=== PATIENT | male | born 1945 | race Caucasian/White ===

== ENCOUNTER 2016-12-20 10:15 | Observation (INO) | payer MEDICARE, OTHER ==
[2016-12-20 10:54] LABS: Hematocrit 44.8 % (42.0-52.0); Hemoglobin 15.1 gm/dL (13.5-18.0); Mean Cell Volume 94.3 fl (78-100); Mean Corpuscular Hemoglobin 31.8 pg (27-31); Mean Corpuscular Hgb Conc 33.7 g/dl (32-36); Mean Platelet Volume 9.4 fl (6.0-9.5); Neutrophil # 7.8 K/mm3 (1.3-6.0); Neutrophil % 81.7 % (42-75.0); Platelet Count 181 K/mm3 (150-450); Red Blood Count 4.75 M/mm3 (4.7-6.0); White Blood Count 9.5 K/mm3 (4.0-10.5)
[2016-12-20 11:14] LABS: Troponin I 0.02 ng/ml (0.00-0.10)
[2016-12-20 11:18] LABS: Anion Gap 10.7 mmol/L (6.8-13.8); BUN/Creatinine Ratio 17.2 (9.0-21.6); CKMB 1.8 ng/mL (0.0-9.0); Calcium * 8.5 mg/dL (7.9-10.9); Carbon Dioxide 31.7 mmol/L (24-32.6); Estimated Creat Clear 61.4; Potassium 4.4 mmol/L (3.4-4.6)
[2016-12-20 11:32] LABS: Prothrombin Time (Patient) 25.5 Seconds (9.4-11.4)
[2016-12-20 11:33] LABS: INR 2.45 INR (0.90-1.10)
[2016-12-20] MEDS ORDERED: NITROGLYCERIN 0.4 MG/TAB BTL SL ONE ×2 (11:35→11:57)
[2016-12-20] MEDS ORDERED: ASPIRIN 81 MG TAB.CHEW PO ONE (11:35)
[2016-12-20] MEDS ORDERED: ASPIRIN 81 MG TAB.CHEW ONE (11:35)
--- NOTE | 2016-12-20 11:42 | ERNOTE ---
Syncope ER HPI Stated Complaint: SYNCOPAL Time Seen by Provider: 12/20/16 11:22 Source: patient Exam Limitations: no limitations Immunizations: IMMUNIZATION HX Immunizations Up to Date Yes History of Influenza Vaccine Yes Hx Pneumococcal Vaccination Yes Allergies/Adverse Reactions: Allergies No Known Allergies Allergy (Unverified 12/20/16 10:36) Home Medications: HOME MEDICATIONS Amiodarone HCl [Pacerone] 200 mg PO DAILY 09/11/12 [Last Taken Unknown] Carvedilol [Coreg] 6.25 mg PO BID 09/11/12 [Last Taken Unknown] Furosemide [Lasix] 20 mg PO DAILY 09/11/12 [Last Taken Unknown] Levothyroxine Sodium [Tirosint] 50 mcg PO DAILY 11/27/12 [Last Taken Unknown] Losartan Potassium [Cozaar] 25 mg PO DAILY 06/18/14 [Last Taken Unknown] Warfarin Sodium [Coumadin] 5 mg PO SUMOWETHSA 06/18/14 [Last Taken Unknown] Warfarin Sodium [Coumadin] 2.5 mg PO TUFR 05/03/16 [Last Taken Unknown] - History of Present Illness Narrative: Patient was at work, when to urinate and when he bend down to wipe the urinal he started to feel lightheaded and then woke up on the floor. A coworker heard him fall, they don't think that he was unconscious for more than a couple of minutes. He never passed out before, has a history of afib and CHF, no history of CAD. He denies any injuries or significant pain except slight central chest pressure (2-3/10) Date (Duration): 12/20/16 Time (Timing): 09:30 Prior Episodes: Present: no prior history, single episode today Review of Systems - Review of Systems Constitutional: Absent: recent illness, fever EYE: Absent: blurred vision, double vision ENT: Absent: nose congestion, nasal drainage, sore throat Respiratory: Absent: shortness of breath, cough Cardiology: Present: See HPI, chest pain, syncope. Absent: palpitations Gastrointestinal/Abdominal: Absent: nausea, vomiting, diarrhea, abdominal pain Genitourinary: Present: no symptoms reported Musculoskeletal: Present: no symptoms reported Skin: Present: no symptoms reported Neurological: Absent: headache, weakness, numbness, pre-existing deficit - Patient's Past Medical History Patient History - Medical: Hypothyroidism Patient History - Cardiac/Respiratory: Atrial Fibrillation - patient is not sure whether intermittent or chronic, Deep Vein Thrombosis, Hypertension, Pneumonia Patient History - Cancer: No Hx of Cancer Patient History - Surgical Procedures: Cholecystectomy Patient History - Other: None - Social History Living Situations: home Abuse History: No History of abuse Psych History: No pertinent hx Smoking Status: Current every day smoker Alcohol Use: none Drug Use: none - Immunizations Immunizations Up to Date: Yes Hx Pneumococcal Vaccination: Yes History of Influenza Vaccine: Yes Physical Exam - Physical Exam General Appearance: Present: wd/wn, alert, no apparent distress Eye Exam: Normal inspection: bilateral, PERRL: bilateral, EOMI: bilateral Ears, Nose, Throat: Present: normal ENT inspection, normal pharynx Neck: Present: normal inspection, nontender, other - chronic decrased ROM Respiratory: Present: no respiratory distress, no accessory muscle use, decreased breath sounds, expiration (prolonged), wheezing - few Cardiovascular/Chest: Present: regular rate, rhythm, no murmur Gastrointestinal/Abdominal: Present: normal bowel sounds, nontender, nondistended, soft Extremity Exam: Present: pedal edema Neurological Exam: Present: alert, oriented, normal mood/affect, no motor/ sensory deficits, 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 - Vital Signs Patient's Vital Signs:: I have reviewed the patient's vital signs. Vital Signs: Vital Signs 12/20/16 12/20/16 10:31 10:55 Temperature 36.6 C Pulse Rate 64 60 Respiratory 12 21 H Rate Blood Pressure 146/65 139/61 O2 Sat by Pulse 99 98 Oximetry - EKG EKG: NSR - sinusbrady, RBBB - incomplete, unchanged from 08/2012 EKG read: Interp. by me - X-Ray X-Ray #1 X-Ray: chest - hyperinflated, no acute changes Interpretation: Reviewed by me - Progress/Reassessment Chief Complaint: Syncopal Episode Progress Note-Subjective: 12/20/16 11:54 some pain relieve with nitro (from 3-4 to 2/10) explained test results 12/20/16 12:35 complete pain relieve with second nitro, explained test results and recommended admission, patient agreed 12/20/16 12:35 discussed with aleksandar Mariee to admit for observation Departure Clinical Impression: Chest pain Qualifiers: Chest pain type: precordial pain Qualified Code(s): R07.2 - Precordial pain Syncope Qualifiers: Syncope type: unspecified Qualified Code(s): R55 - Syncope and collapse - Departure Disposition: [facility] Condition: Good Referrals: Mya Ta MD [Primary Care Provider] -
--- OUTSIDE RECORDS SUMMARY | 2016-12-20 12:03 | XMS REPORT | Continuity of Care Document ---
:1945 Author Organization [facility] ([facility]) Address [address] [place] [address] Phone [phone] Care Team Providers Name Role Phone Mya Ta Primary Care Provider [phone] Source Comments This disclosure is being made pursuant to the Care Everywhere program, applicable federal and state laws, and may not contain all informaitonavailable regarding this patient.[facility] ([facility]) Active Allergies and Adverse Reactions No Known Allergies Current Medications Prescription Sig. Disp. Refills Start Date End Date Status furosemide 20 mg tablet Take 20 mg by 09/23/2013 Active mouth daily losartan 25 mg tablet Take 25 mg by 06/06/2014 Active mouth daily warfarin (COUMADIN) 5 take 1/2 tablet 09/01/2012 Active mg tablet Friday and Friday. Take one pill all other days, or as directed. amiodarone 200 mg Take 1 tablet 90 tablet 0 07/03/2016 Active tablet (200 mg total) by mouth daily. levothyroxine 50 mcg Take 50 mcg by 6 06/24/2016 Active tablet mouth daily. carvedilol 25 mg tablet Take 1 tablet 180 tablet 4 10/01/2016 Active (25 mg total) by mouth 2 times daily. Active Problems Problem Noted Date Aneurysm of thoracic aorta Overview: CTA [place]: 4.2 cm. 05/2014 CTA [place] 4.5cm 06/2015 Cardiomyopathy, secondary Overview: Formatting of this note may be different from the original. CARDIOVASCULAR PROCEDURES ECHO/MUGA: Echo (EF 0.15, Mild MR, Mild TR) - 08/18/2012 Echo (EF 0.40, Mild MR, Mild AR) - 11/19/2012 Echo (EF 0.55 (55%), Mild AR, Mild MR, dilated TAA) - 04/07/2014 Atrial fibrillation Alcohol abuse DVT (deep venous thrombosis) PVD (peripheral vascular disease) Tobacco abuse Abdominal aortic aneurysm Overview: CTA [place] 4.5 x4.6cm 06/2015 Most Recent Encounters Date Type Specialty Providers Description 10/01/2016 Refill Cardiac Rehabilitation Gemini Garcia MD Dx: Essential hypertension, benign (Primary Dx) Social History Tobacco Use Types Packs/Day Years Used Date Current Every Day Smoker Cigarettes 0.25 Tobacco Cessation:Ready to Quit: No; Counseling Given: Yes Comments: Alcohol Use Drinks/Week oz/Week Comments Yes Last Filed Vital Signs Vital Sign Reading Time Taken Blood Pressure 150/84 08/06/2016 10:50 AM MANAGER WINTER Pulse 58 08/06/2016 10:50 AM MANAGER WINTER Temperature - - Respiratory Rate - - Height 1.88 m (6' 2") 08/06/2016 10:50 AM MANAGER WINTER Weight 87.544 kg (193 lb) 08/06/2016 10:50 AM MANAGER WINTER Body Mass Index 24.77 08/06/2016 10:50 AM MANAGER WINTER Oxygen Saturation - - Plan of Care Date Type Specialty Providers Description 12/25/2016 Hospital Encounter Radiology Dx: Pre-procedure lab exam (Primary Dx) 12/25/2016 Appointment Vascular Surgery Gayle Rubio, 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 Reason For [address] [place] [address] [phone] (Fax) 01/28/2017 Appointment Heart and Vascular Default, Other Billg - [facility] [address] [place] [address] [phone] (Fax) Chief Comp: Patient Gemini Garcia MD [address] [place] [address] [phone] (Fax) Reported Reason For Visit Health Maintenance Due Date Last Done Comments Hepatitis B Vaccine (1 of 3 - Primary Series) 1945 Tdap Vaccine 1954 Lipid Disorder Screening 1961 Td Vaccine 1961 Colonoscopy 08/19/1993 Prostate Cancer Screening 1993 Zoster Vaccine 2003 Pneumococcal Vaccine (1 of 2 - PCV13) 2008 Influenza Vaccine: Seasonal Completed Results from Last 3 Months Not on file
[2016-12-20] MEDS ORDERED: ATORVASTATIN CALCIUM 40 MG TABLET PO STA (12:44)
--- OUTSIDE RECORDS SUMMARY | 2016-12-20 12:46 | XMS REPORT | Continuity of Care Document ---
:1945 Author Organization [facility] ([facility]) Address [address] [place] [address] Phone [phone] Care Team Providers Name Role Phone Mya Ta Primary Care Provider [phone] Source Comments This disclosure is being made pursuant to the Care Everywhere program, applicable federal and state laws, and may not contain all informaitonavailable regarding this patient.[facility] ([facility]) Active Allergies and Adverse Reactions No [...] Taken Blood Pressure 150/84 08/06/2016 10:50 AM FAN ENGINE ENGINEER Pulse 58 08/06/2016 10:50 AM FAN ENGINE ENGINEER Temperature - - Respiratory Rate - - Height 1.88 m (6' 2") 08/06/2016 10:50 AM FAN ENGINE ENGINEER Weight 87.544 kg (193 lb) 08/06/2016 10:50 AM FAN ENGINE ENGINEER Body Mass Index 24.77 08/06/2016 10:50 AM FAN ENGINE ENGINEER Oxygen Saturation - - Plan of Care Date Type Specialty Providers Description 12/25/2016 Hospital Encounter Radiology Dx: Pre-procedure lab exam (Primary Dx) 12/25/2016 Appointment Vascular Surgery Gayle Rubio, 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
[2016-12-20] MEDS ORDERED: NITROGLYCERIN 0.4 MG/TAB BTL SL PRN (13:53)
[2016-12-20] MEDS ORDERED: ROSUVASTATIN CALCIUM 10 MG TABLET PO ONE (13:59)
[2016-12-20] MEDS: LEVOTHYROXINE SODIUM 50 MCG TABLET PO SCH (14:48)
[2016-12-20] MEDS ORDERED: WARFARIN SODIUM 2.5 MG TABLET PO SCH (17:00)
[2016-12-20 17:26] LABS: Urine Bilirubin 1 mg/dl (NEGATIVE); Urine Blood 250 /ul (NEGATIVE); Urine Ketone Negative (NEGATIVE); Urine Nitrite Negative (NEGATIVE); Urine Protein 15 mg/dL (NEGATIVE); Urine Specific Gravity >=1.030 SP.GR. (1.005-1.030); Urine Urobilinogen Normal (NORMAL); Urine pH 5.5 pH (5.0-7.0)
[2016-12-20 17:42] LABS: Urine Appearance Slightly Cloudy; Urine Color Amber
[2016-12-20 17:43] LABS: Urine Bacteria 1+; Urine Coarse Granular Cast 0-5 /LPF; Urine Mucus Moderate - 2+; Urine RBC 25-50 /hpf (0-5)
[2016-12-20 18:57] LABS: Hemoglobin 14.2 gm/dL (13.5-18.0)
--- NOTE | 2016-12-20 19:48 | HP ---
Chief Complaint - Chief Complaint Date of Service: 12/20/16 Time of Service: 15:40 Chief Complaint: chest pain, syncope History of Present Illness: Axel is a 71 year old male patient of Dr Ta with a PMH of atrial fibrillation (currently in SR on amiodarone), dilated cardiomyopathy (ef 55%), history of DVT left leg on coumadin, ascending thoracic aneurysm, AAA, hypothyoridism, HTN, PVD who presented to the emergency room with chest pain after a syncopal episode at work. 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 denies any dizziness, nausea or sweating prior his syncopal episode. patient indicates that after passing out he hit his shoulder and not any part of his head. at this point he developed chest pain, that he describes as a pressure in the middle of his chest, and presented to the er. In the ER, chest pain was relieved with 2 sl ntg. pt denies any radiation of the chest pain. denies any abdominal pain. denies any back pain or n/v. patient indicates he has been eating and drinking well the past week and has not had any URI symptoms for over a month. EKG in the er was non acute. chest xray was non acute. neutrophils were elevated in the ER with normal wbc so UA pending. troponin 0.020. INR therapeutic at 2.45. pt was admitted to the hospital for chest pain rule out MS. Patient see cardiology at [facility]. Last CTA of the chest showed thoracic aneurysm at 5.5 cm and AAA at 5.3 x 3.7 cm with recommendations to follow up with CTA in 6 months (done 07/25/2016). History of chronic afib, currently in SR with amiodarone - pt states that he does not know when he is in afib. - Patient's Past Medical History Patient History - Medical: Hypothyroidism Patient History - Cardiac/Respiratory: Atrial Fibrillation, Deep Vein Thrombosis , Hypertension Patient History - Cancer: No Hx of Cancer Patient History - Surgical Procedures: Cholecystectomy Patient History - Other: None - Family History Father Family History - Medical: Family History - Cardiac/Respiratory: No pertinent hx Family History - Cancer: No pertinent family hx Mother Family History - Medical: Family History - Cardiac/Respiratory: No pertinent hx Family History - Cancer: No pertinent family hx - Social History Living Situations: spouse Abuse History: No History of abuse Psych History: No pertinent hx Smoking Status: Current every day smoker Have you smoked in the past 12 months: Yes Do you dip or chew tobacco: No Patient requests Smoking Cessation Consult: No Initiate information on Smoking Cessation: No Alcohol Use: none Drug Use: none - Immunizations Immunizations Up to Date: Yes Hx Pneumococcal Vaccination: Yes History of Influenza Vaccine: Yes Review Of Systems (GEN) - Review of Systems Generalized/Overall Review: Present: No Symptoms Reported EENTM: Present: No Symptoms Reported Respiratory: Present: Cough - states pt has chronic cough - no change in cough. Absent: Shortness of Breath, Orthopnea, Wheezing Cardiac: Present: Chest Pain, Edema, Syncope. Absent: Palpitations Abdominal: Present: No Symptoms Reported Genitourinary: Present: No Symptoms Reported Musculoskeletal: Present: No Symptoms Reported Neurological: Present: No Symptoms Reported Skin: Present: No Symptoms Reported Endocrine: Present: No Symptoms Reported Misc: All systems neg except as marked Immunizations: IMMUNIZATION HX Immunizations Up to Date Yes History of Influenza Vaccine Yes Hx Pneumococcal Vaccination Yes Allergies/Adverse Reactions: Allergies Allergy/AdvReac Type Severity Reaction Status Date / Time JOHNNY Inhibitors Allergy Intermediate Verified 12/20/16 13:39 lisinopril Allergy Intermediate Verified 12/20/16 13:39 Home Medications: HOME MEDICATIONS Amiodarone HCl [Pacerone] 200 mg PO DAILY 09/11/12 [Last Taken Unknown] Carvedilol [Coreg] 6.25 mg PO DAILY 09/11/12 [Last Taken Unknown] Furosemide [Lasix] 20 mg PO DAILY 09/11/12 [Last Taken Unknown] Levothyroxine Sodium [Tirosint] 50 mcg PO DAILY 11/27/12 [Last Taken Unknown] Losartan Potassium [Cozaar] 25 mg PO BID 06/18/14 [Last Taken Unknown] Warfarin Sodium [Coumadin] 5 mg PO MOWETHSA 06/18/14 [Last Taken Unknown] Warfarin Sodium [Coumadin] 2.5 mg PO SUTUFR 05/03/16 [Last Taken Unknown] Exam - Exam Vital Signs: Vital Signs - Last Taken Temp 35.9 C L 12/20/16 13:24 Pulse 71 12/20/16 13:24 Resp 16 12/20/16 13:24 BP 78/50 12/20/16 13:24 Pulse Ox 100 12/20/16 13:24 Constitutional: Present: Alert, Oriented x3, Cooperative, No distress, Elderly ENT Exam: Present: hearing grossly normal Eye Exam: bilateral eye: normal inspection Neck: Present: full range of motion, supple Back Exam: Present: normal inspection, no vertebral tenderness Breasts: Present: Exam deferred Respiratory: Present: chest non-tender, lungs clear, normal breath sounds, no respiratory distress, no accessory muscle use Cardiovascular/Chest: Present: normal peripheral pulses, regular rate, rhythm, no chest tenderness, no JVD, edema - +2 left lower leg edema, trace right lower leg edema - indicates left leg swells during the day but return to normal by morning. Peripheral Pulses: dorsalis-pedis (R): 2+, dorsalis-pedis (L): 2+, radial (R): 2 +, radial (L): 2+ Abdomen: Present: Normal bowel sounds, soft, nontender, nondistended, no rebound tenderness /Rectal: Present: Exam deferred Extremity: Present: non-tender, no calf tenderness, lower extremity edema - +2 edema left leg, trace edema right leg, swelling - left leg. Absent: inflammation Skin Exam: Present: warm/dry, no cyanosis, pallor Neurologic: Present: alert, oriented x 3 Diagnostic Studies: Abnormal Lab Results 12/20/16 12/20/16 12/20/16 Range/Units 17:20 18:44 18:44 Hct 41.0 L (42.0-52.0) % Troponin I 0.106 H (0.00-0.10) ng/ml Urine Protein 15 H (NEGATIVE) mg/dL Urine Blood 250 H (NEGATIVE) /ul Urine Bilirubin 1 H (NEGATIVE) mg/dl Ur Leukocyte Esterase 75 H (NEGATIVE) /ul Urine RBC 25-50 H (0-5) /hpf Urine WBC 5-10 H (0-5) /hpf Ur Epithelial Cells 5-10 H (0-5) /hpf Urine Bacteria 1+ H (NONE) Hyaline Casts 5-10 H (NONE) /LPF Coarse Granular Casts 0-5 H (NONE) /LPF Urine Mucus Moderate - 2+ H (NONE) Laboratory Results WBC 9.5 K/mm3 (4.0-10.5) 12/20/16 10:53 RBC 4.75 M/mm3 (4.7-6.0) 12/20/16 10:53 Hgb 14.2 gm/dL (13.5-18.0) 12/20/16 18:44 Hct 41.0 % (42.0-52.0) L 12/20/16 18:44 MCV 94.3 fl (78-100) 12/20/16 10:53 MCH 31.8 pg (27-31) H 12/20/16 10:53 MCHC 33.7 g/dl (32-36) 12/20/16 10:53 RDW 14.0 % (11.5-14.0) 12/20/16 10:53 Plt Count 181 K/mm3 (150-450) 12/20/16 10:53 MPV 9.4 fl (6.0-9.5) 12/20/16 10:53 Immature Gran % (Auto) 0.50 % (0.001-0.429) H 12/20/16 10:53 Immature Gran # (Auto) 0.05 K/mm3 (0.000-0.0310) H 12/20/16 10:53 Neutrophils % 81.7 % (42-75.0) H 12/20/16 10:53 Lymphocytes % 7.5 % (20-51) L 12/20/16 10:53 Monocytes % 8.6 % (0.0-9) 12/20/16 10:53 Eosinophils % 1.3 % (0.0-3.0) 12/20/16 10:53 Basophils % 0.4 % (0.0-1.0) 12/20/16 10:53 Nucleated RBC % 0.0 k/mm3 (0-1) 12/20/16 10:53 Neutrophils # 7.8 K/mm3 (1.3-6.0) H 12/20/16 10:53 Lymphocytes # 0.7 k/mm3 (1.5-3.5) L 12/20/16 10:53 Monocytes # 0.8 k/mm3 (0.0-1.0) 12/20/16 10:53 Eosinophils # 0.1 k/mm3 (0.0-0.7) 12/20/16 10:53 Absolute Basophils 0.0 k/mm3 (0.0-0.1) 12/20/16 10:53 PT 25.5 Seconds (9.4-11.4) H 12/20/16 10:15 INR (Anticoag Therapy) 2.45 INR (0.90-1.10) H 12/20/16 10:15 Sodium 142 mmol/L (132-142) 12/20/16 10:53 Plasma Sodium 142 mmol/L (130-142) 12/20/16 10:53 Potassium 4.4 mmol/L (3.4-4.6) 12/20/16 10:53 Chloride 104 mmol/L (97-106) 12/20/16 10:53 Carbon Dioxide 31.7 mmol/L (24-32.6) 12/20/16 10:53 Anion Gap 10.7 mmol/L (6.8-13.8) 12/20/16 10:53 BUN 22 mg/dL (6-23) 12/20/16 10:53 Creatinine 1.28 mg/dL (0.4-1.4) 12/20/16 10:53 Est GFR (Non-Af Amer) 59 mL/min (60-130) L 12/20/16 10:53 BUN/Creatinine Ratio 17.2 (9.0-21.6) 12/20/16 10:53 Random Glucose 118 mg/dL (70-110) H 12/20/16 10:53 Calcium 8.5 mg/dL (7.9-10.9) 12/20/16 10:53 Creatine Kinase 126 U/L (0-259) 12/20/16 10:53 CK-MB (CK-2) 1.8 ng/mL (0.0-9.0) 12/20/16 10:53 CK-MB (CK-2) Rel Index 1.4 (0.0-3.6) 12/20/16 10:53 Troponin I 0.106 ng/ml (0.00-0.10) H 12/20/16 18:44 Urine Color Guerline 12/20/16 17:20 Urine Appearance Slightly cloudy 12/20/16 17:20 Urine pH 5.5 pH (5.0-7.0) 12/20/16 17:20 Ur Specific [place] >=1.030 SP.GR. (1.005-1.030) 12/20/16 17:20 Urine Protein 15 mg/dL (NEGATIVE) H 12/20/16 17:20 Urine Glucose (UA) Negative mg/dL (NEGATIVE) 12/20/16 17:20 Urine Ketones Negative mg/dL (NEGATIVE) 12/20/16 17:20 Urine Blood 250 /ul (NEGATIVE) H 12/20/16 17:20 Urine Nitrate Negative (NEGATIVE) 12/20/16 17:20 Urine Bilirubin 1 mg/dl (NEGATIVE) H 12/20/16 17:20 Urine Ictotest Negative (NEGATIVE) 12/20/16 17:20 Prot Sulfosalicylic Acd Negative mg/dL (0) 12/20/16 17:20 Urine Urobilinogen Normal EU/dl (NORMAL) 12/20/16 17:20 Ur Leukocyte Esterase 75 /ul (NEGATIVE) H 12/20/16 17:20 Urine RBC 25-50 /hpf (0-5) H 12/20/16 17:20 Urine WBC 5-10 /hpf (0-5) H 12/20/16 17:20 Ur Epithelial Cells 5-10 /hpf (0-5) H 12/20/16 17:20 Urine Bacteria 1+ (NONE) H 12/20/16 17:20 Hyaline Casts 5-10 /LPF (NONE) H 12/20/16 17:20 Coarse Granular Casts 0-5 /LPF (NONE) H 12/20/16 17:20 Urine Mucus Moderate - 2+ (NONE) H 12/20/16 17:20 Urine Culture Comments Culture to follow 12/20/16 17:20 Assessment/Plan - Narrative Narrative: 71 year old male admitted with chest pain and syncopal episode. Chest pain rule out MS - serial troponins with ekg. - check labs in the am. - has been chest pain free since the 2 sl ntg in the er. - sl ntg prn. - cont tele, cont O2 monitoring. - already on a beta-ene. atrial fib - currently in sr, on amiodarone. - on chronic coumadin due to dvt hx left leg. - inr therapeutic on admission - monitor on cont tele. thoracic and abdominal aneurysms - currently being monitored by cardiology at [facility]. - last CTA showed size to be over 5 cm for both - possible that cp can be coming from dissection or leaking of either aneurysms - pt does not have classic tearing chest pain, back pain or abdominal symptoms. if pt develops chest pain overnight or if clinic picture changes overnight, will need to obtain a cta of the chest and abdomen. history of dvt - on chronic coumadin - inr therapeutic - monitor daily inr's while admitted. post thrombotic syndrome of the left lower extremity - significant difference in swelling of left lower extremity when compared to right but this resolves in the morning - likely due to history of dvt and post thrombotic syndrome. syncope - unknown cause. vasal vagal unlikely as pt did not have dizziness, n/v, or diaphoresis prior to episode. will monitor closely. pt denies hitting his head and states that he hit his shoulder. neuro exam unremarkable but if clinical picture changes he will need a ct of the head. - syncope also possibly due to MS vs sequela of changing aneurysms (ie dissections vs leakage) - monitor troponins and hgb/hct. monitor ekg. if pt develops chest pain or if clinical picture changes, pt will need cta of chest and abdomen to assess aneurysms. Code status - Full Code GI Proph - protonix VTE - already therapeutic on coumadin. - Assessment/Plan (1) Chest pain, rule out acute myocardial infarction Problem: Acute (2) Atrial fibrillation Problem: Chronic Qualifiers: Atrial fibrillation type: chronic Qualified Code(s): I48.2 - Chronic atrial fibrillation (3) Thoracic ascending aortic aneurysm Problem: Chronic (4) Abdominal aortic aneurysm Problem: Chronic Qualifiers: Presence of rupture: without rupture Qualified Code(s): I71.4 - Abdominal aortic aneurysm, without rupture (5) HTN (hypertension) Problem: Chronic Qualifiers: Hypertension type: essential hypertension Qualified Code(s): I10 - Essential (primary) hypertension (6) History of DVT (deep vein thrombosis) Problem: Chronic (7) 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
[2016-12-20] MEDS: LOSARTAN POTASSIUM 50 MG TABLET PO SCH (20:52)
[2016-12-21 05:01] LABS: Hematocrit 38.3 % (42.0-52.0); Mean Cell Volume 92.7 fl (78-100); Mean Corpuscular Hemoglobin 31.5 pg (27-31); Mean Corpuscular Hgb Conc 33.9 g/dl (32-36); Mean Platelet Volume 9.7 fl (6.0-9.5); Neutrophil # 13.3 K/mm3 (1.3-6.0); Neutrophil % 85.3 % (42-75.0); Platelet Count 161 K/mm3 (150-450); Red Blood Count 4.13 M/mm3 (4.7-6.0); White Blood Count 15.5 K/mm3 (4.0-10.5)
[2016-12-21 05:09] LABS: Prothrombin Time (Patient) 29.8 Seconds (9.4-11.4)
[2016-12-21 05:11] LABS: INR 2.87 INR (0.90-1.10)
[2016-12-21 05:25] LABS: Anion Gap 11.7 mmol/L (6.8-13.8); BUN/Creatinine Ratio 19.6 (9.0-21.6); Calcium * 8.1 mg/dL (7.9-10.9); Carbon Dioxide 27.9 mmol/L (24-32.6); Estimated Creat Clear 71.5; Potassium 3.6 mmol/L (3.4-4.6)
[2016-12-21 05:27] LABS: Troponin I 0.152 ng/ml (0.00-0.10)
[2016-12-21] MEDS ORDERED: NORMAL SALINE 500 ML IV PRN (06:15)
[2016-12-21] MEDS: LEVOTHYROXINE SODIUM 50 MCG TABLET PO SCH (06:33)
[2016-12-21] MEDS ORDERED: LEVOTHYROXINE SODIUM 50 MCG TABLET PO SCH (07:00)
[2016-12-21] MEDS ORDERED: NORMAL SALINE 500 ML IV ONE (07:48)
[2016-12-21] MEDS ORDERED: PANTOPRAZOLE SODIUM 40 MG in NORMAL SALINE 100 ML IV SCH (08:15)
[2016-12-21] MEDS ORDERED: NOREPINEPHRINE BITARTRATE 4 MG in DEXTROSE 5 % IN WATER 496 ML IV PRN ×2 (08:43)
[2016-12-21] MEDS ORDERED: CARVEDILOL 6.25 MG TABLET PO SCH (09:00)
[2016-12-21] MEDS ORDERED: FUROSEMIDE 40 MG TABLET PO SCH (09:00)
[2016-12-21] MEDS ORDERED: AMIODARONE HCL 200 MG TABLET PO SCH (09:00)
[2016-12-21 09:09] LABS: Hematocrit 38.8 % (42.0-52.0); Hemoglobin 13.3 gm/dL (13.5-18.0)
[2016-12-21] MEDS: LOSARTAN POTASSIUM 50 MG TABLET PO SCH (10:30)
[2016-12-21] MEDS ORDERED: PHYTONADIONE (VIT K1) 5 MG TABLET PO ONE (10:34)
--- NOTE | 2016-12-21 13:09 | DS ---
Transfer Discharge Summary - Diagnosis(s)/Problems (1) Chest pain, rule out acute myocardial infarction Problem: Acute (2) Atrial fibrillation Problem: Chronic (3) Thoracic ascending aortic aneurysm Problem: Chronic (4) Abdominal aortic aneurysm Problem: Chronic (5) HTN (hypertension) Problem: Chronic (6) History of DVT (deep vein thrombosis) Problem: Chronic (7) Postthrombotic syndrome of left lower extremity without complications Problem: Chronic (8) [facility] current use of anticoagulant Problem: Chronic (9) Syncope Problem: Acute - Course Description of Stay: Axel is a 71 year old male patient of Dr Ta with a PMH of atrial fibrillation (currently in SR on amiodarone), dilated cardiomyopathy (ef 55%), history of DVT left leg on coumadin, ascending thoracic aneurysm, AAA, hypothyoridism, HTN, PVD who presented to the emergency room with chest pain after a syncopal episode at work. 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 denies any dizziness, nausea or sweating prior his syncopal episode. patient indicates that after passing out he hit his shoulder and not any part of his head. at this point he developed chest pain, that he describes as a pressure in the middle of his chest, and presented to the er. In the ER, chest pain was relieved with 2 sl ntg. pt denies any radiation of the chest pain. denies any abdominal pain. denies any back pain or n/v. patient indicates he has been eating and drinking well the past week and has not had any URI symptoms for over a month. EKG in the er was non acute. chest xray was non acute. neutrophils were elevated in the ER with normal wbc so UA pending. troponin 0.020. INR therapeutic at 2.45. pt was admitted to the hospital for chest pain rule out MO. Patient see cardiology at [facility]. Last CTA of the chest showed thoracic aneurysm at 5.5 cm and AAA at 5.3 x 3.7 cm with recommendations to follow up with CTA in 6 months (done 07/25/2016). History of chronic afib, currently in SR with amiodarone - pt states that he does not know when he is in afib. overnight, patient's cardiac enzymes boogie and his blood pressure in the right arm remained in the 90s or below, although the patient was asymptomatic. In the morning after admission, his right arm sbp was 68 and his left arm sbp was 105. stat ct of the chest was ordered. radiologist called and confirmed that patient has an ascending dissecting thoracic aortic aneurysm that extends down into his abdomen, up into the beginning of his carotid arteries and into the beginning of his coronary arteries, in addition patient was beginning to bleed into his chest. 2 units stat PRBCs blood transfusion was ordered emergent. [facility] 2 units of PRBCs were sent with air evac. [facility]. Procedures Performed: none - Results and Findings Results and Findings: Laboratory Results - last 24 hr 12/20/16 12/20/16 12/20/16 17:20 18:44 18:44 WBC RBC Hgb 14.2 Hct 41.0 L MCV MCH MCHC RDW Plt Count MPV Immature Gran % (Auto) Immature Gran # (Auto) Neutrophils % Neutrophils % (Manual) Band Neuts % (Manual) Lymphocytes % Lymphocytes % (Manual) Monocytes % Monocytes % (Manual) Eosinophils % Eosinophils % (Manual) Basophils % Basophils % (Manual) Nucleated RBC % Immature Granulocytes Neutrophils # Neutrophils # (Manual) Lymphocytes # Lymphocytes # (Manual) Monocytes # Monocytes # (Manual) Eosinophils # Eosinophils # (Manual) Basophils # (Manual) Absolute Basophils Nucleated RBCs Differential Comment Hypersegmented Polys Atypic/Reactive Lymphs Smudge Cells Other Cell Type Toxic Granulation Toxic Vacuolation Dohle Bodies Platelet Estimate Giant Platelets RBC Morphology Polychromasia Hypochromasia Poikilocytosis Basophilic Stippling Anisocytosis Microcytosis Macrocytosis Spherocytes Sickle Cells Target Cells Tear Drop Cells Ovalocytes Stomatocytes Griffin-Gabbs Bodies [place] Cells Elliptocytes Rouleaux Schistocytes Morphology Comment PT INR (Anticoag Therapy) Sodium Plasma Sodium Potassium Chloride Carbon Dioxide Anion Gap BUN Creatinine Est GFR (Non-Af Amer) BUN/Creatinine Ratio Random Glucose Lactic Acid, Venous Calcium Troponin I 0.106 H Procalcitonin Urine Color Guerline Urine Appearance Slightly cloudy Urine pH 5.5 Ur Specific [place] >=1.030 Urine Protein 15 H Urine Glucose (UA) Negative Urine Ketones Negative Urine Blood 250 H Urine Nitrate Negative Urine Bilirubin 1 H Urine Ictotest Negative Prot Sulfosalicylic Acd Negative Urine Urobilinogen Normal Ur Leukocyte Esterase 75 H Urine RBC 25-50 H Urine WBC 5-10 H Ur Epithelial Cells 5-10 H Urine Bacteria 1+ H Hyaline Casts 5-10 H Coarse Granular Casts 0-5 H Urine Mucus Moderate - 2+ H Urine Culture Comments Culture to follow Blood Type Antibody Screen Crossmatch 12/21/16 12/21/16 12/21/16 04:58 04:58 04:58 WBC 15.5 H D RBC 4.13 L Hgb 13.0 L Hct 38.3 L MCV 92.7 MCH 31.5 H MCHC 33.9 RDW 14.0 Plt Count 161 MPV 9.7 H Immature Gran % (Auto) 0.70 H Immature Gran # (Auto) 0.11 H Neutrophils % 85.3 H Neutrophils % (Manual) Cancelled Band Neuts % (Manual) Cancelled Lymphocytes % 3.7 L Lymphocytes % (Manual) Cancelled Monocytes % 10.1 H Monocytes % (Manual) Cancelled Eosinophils % 0.0 Eosinophils % (Manual) Cancelled Basophils % 0.2 Basophils % (Manual) Cancelled Nucleated RBC % 0.0 Immature Granulocytes Cancelled Neutrophils # 13.3 H Neutrophils # (Manual) Cancelled Lymphocytes # 0.6 L Lymphocytes # (Manual) Cancelled Monocytes # 1.6 H Monocytes # (Manual) Cancelled Eosinophils # 0.0 Eosinophils # (Manual) Cancelled Basophils # (Manual) Cancelled Absolute Basophils 0.0 Nucleated RBCs Cancelled Differential Comment Cancelled Hypersegmented Polys Cancelled Atypic/Reactive Lymphs Cancelled Smudge Cells Cancelled Other Cell Type Cancelled Toxic Granulation Cancelled Toxic Vacuolation Cancelled Dohle Bodies Cancelled Platelet Estimate Cancelled Giant Platelets Cancelled RBC Morphology Cancelled Polychromasia Cancelled Hypochromasia Cancelled Poikilocytosis Cancelled Basophilic Stippling Cancelled Anisocytosis Cancelled Microcytosis Cancelled Macrocytosis Cancelled Spherocytes Cancelled Sickle Cells Cancelled Target Cells Cancelled Tear Drop Cells Cancelled Ovalocytes Cancelled Stomatocytes Cancelled Griffin-Gabbs Bodies Cancelled Jose Cells Cancelled Elliptocytes Cancelled Rouleaux Cancelled Schistocytes Cancelled Morphology Comment Cancelled PT 29.8 H INR (Anticoag Therapy) 2.87 H Sodium 140 Plasma Sodium 141 Potassium 3.6 Chloride 104 Carbon Dioxide 27.9 Anion Gap 11.7 BUN 21 Creatinine 1.07 Est GFR (Non-Af Amer) 72 D BUN/Creatinine Ratio 19.6 Random Glucose 143 H Lactic Acid, Venous Calcium 8.1 Troponin I 0.152 H* Procalcitonin Urine Color Urine Appearance Urine pH Ur Specific [place] Urine Protein Urine Glucose (UA) Urine Ketones Urine Blood Urine Nitrate Urine Bilirubin Urine Ictotest Prot Sulfosalicylic Acd Urine Urobilinogen Ur Leukocyte Esterase Urine RBC Urine WBC Ur Epithelial Cells Urine Bacteria Hyaline Casts Coarse Granular Casts Urine Mucus Urine Culture Comments Blood Type Antibody Screen Crossmatch 12/21/16 12/21/16 12/21/16 07:00 07:00 09:00 WBC RBC Hgb Hct MCV MCH MCHC RDW Plt Count MPV Immature Gran % (Auto) Immature Gran # (Auto) Neutrophils % Neutrophils % (Manual) Band Neuts % (Manual) Lymphocytes % Lymphocytes % (Manual) Monocytes % Monocytes % (Manual) Eosinophils % Eosinophils % (Manual) Basophils % Basophils % (Manual) Nucleated RBC % Immature Granulocytes Neutrophils # Neutrophils # (Manual) Lymphocytes # Lymphocytes # (Manual) Monocytes # Monocytes # (Manual) Eosinophils # Eosinophils # (Manual) Basophils # (Manual) Absolute Basophils Nucleated RBCs Differential Comment Hypersegmented Polys Atypic/Reactive Lymphs Smudge Cells Other Cell Type Toxic Granulation Toxic Vacuolation Dohle Bodies Platelet Estimate Giant Platelets RBC Morphology Polychromasia Hypochromasia Poikilocytosis Basophilic Stippling Anisocytosis Microcytosis Macrocytosis Spherocytes Sickle Cells Target Cells Tear Drop Cells Ovalocytes Stomatocytes Griffin-Gabbs Bodies [place] Cells Elliptocytes Rouleaux Schistocytes Morphology Comment PT INR (Anticoag Therapy) Sodium Plasma Sodium Potassium Chloride Carbon Dioxide Anion Gap BUN Creatinine Est GFR (Non-Af Amer) BUN/Creatinine Ratio Random Glucose Lactic Acid, Venous 1.8 Calcium Troponin I 0.189 H* Procalcitonin Less than 0.05 L Urine Color Urine Appearance Urine pH Ur Specific [place] Urine Protein Urine Glucose (UA) Urine Ketones Urine Blood Urine Nitrate Urine Bilirubin Urine Ictotest Prot Sulfosalicylic Acd Urine Urobilinogen Ur Leukocyte Esterase Urine RBC Urine WBC Ur Epithelial Cells Urine Bacteria Hyaline Casts Coarse Granular Casts Urine Mucus Urine Culture Comments Blood Type Antibody Screen Crossmatch 12/21/16 12/21/16 09:00 09:00 WBC RBC Hgb 13.3 L Hct 38.8 L MCV MCH MCHC RDW Plt Count MPV Immature Gran % (Auto) Immature Gran # (Auto) Neutrophils % Neutrophils % (Manual) Band Neuts % (Manual) Lymphocytes % Lymphocytes % (Manual) Monocytes % Monocytes % (Manual) Eosinophils % Eosinophils % (Manual) Basophils % Basophils % (Manual) Nucleated RBC % Immature Granulocytes Neutrophils # Neutrophils # (Manual) Lymphocytes # Lymphocytes # (Manual) Monocytes # Monocytes # (Manual) Eosinophils # Eosinophils # (Manual) Basophils # (Manual) Absolute Basophils Nucleated RBCs Differential Comment Hypersegmented Polys Atypic/Reactive Lymphs Smudge Cells Other Cell Type Toxic Granulation Toxic Vacuolation Dohle Bodies Platelet Estimate Giant Platelets RBC Morphology Polychromasia Hypochromasia Poikilocytosis Basophilic Stippling Anisocytosis Microcytosis Macrocytosis Spherocytes Sickle Cells Target Cells Tear Drop Cells Ovalocytes Stomatocytes Griffin-Gabbs Bodies [place] Cells Elliptocytes Rouleaux Schistocytes Morphology Comment PT INR (Anticoag Therapy) Sodium Plasma Sodium Potassium Chloride Carbon Dioxide Anion Gap BUN Creatinine Est GFR (Non-Af Amer) BUN/Creatinine Ratio Random Glucose Lactic Acid, Venous Calcium Troponin I Procalcitonin Urine Color Urine Appearance Urine pH Ur Specific [place] Urine Protein Urine Glucose (UA) Urine Ketones Urine Blood Urine Nitrate Urine Bilirubin Urine Ictotest Prot Sulfosalicylic Acd Urine Urobilinogen Ur Leukocyte Esterase Urine RBC Urine WBC Ur Epithelial Cells Urine Bacteria Hyaline Casts Coarse Granular Casts Urine Mucus Urine Culture Comments Blood Type A Negative Antibody Screen Negative Crossmatch See Detail - Medications Medications: Active Medications Sodium Chloride (Sodium Chloride 0.9%) 500 mls @ 999 mls/hr IV .Q31M PRN PRN Reason: HYDRATION Stop: 01/20/17 06:16 Last Infusion: 12/21/16 10:06 Dose: Infused Ceftriaxone Sodium 2,000 mg/ (Dextrose/Water) 100 mls @ 200 mls/hr IV Q24H MICK PRN Reason: Protocol Stop: 01/20/17 07:31 Last Infusion: 12/21/16 10:38 Dose: Infused Pantoprazole Sodium 40 mg/ (Sodium Chloride) 100 mls @ 400 mls/hr IV Q24H MICK Stop: 01/20/17 08:16 Last Infusion: 12/21/16 10:23 Dose: Infused Levothyroxine Sodium (Synthroid) 50 mcg PO DAILY@0700 [facility] Stop: 01/19/17 15:01 Last Admin: 12/21/16 06:33 Dose: 50 mcg Losartan Potassium (Cozaar) 25 mg PO BID [facility] Stop: 01/19/17 21:01 Last Admin: 12/20/16 20:52 Dose: Not Given Discontinued Medications Aspirin (Aspirin Chewable) 243 mg PO ONCE ONE Stop: 12/20/16 11:36 Last Admin: 12/20/16 11:37 Dose: 243 mg Atorvastatin Calcium (Lipitor) 40 mg PO ONCE STA Stop: 12/20/16 12:45 Last Admin: 12/20/16 13:52 Dose: Not Given Sodium Chloride (Sodium Chloride 0.9%) 500 mls @ 500 mls/hr IV .Q1H ONE Stop: 12/21/16 08:47 Last Admin: 12/21/16 07:45 Dose: 500 mls/hr Nitroglycerin (Nitrostat) 0.4 mg SL ONCE ONE Stop: 12/20/16 11:36 Last Admin: 12/20/16 11:44 Dose: 0.4 mg Nitroglycerin (Nitrostat) 0.4 mg SL ONCE ONE Stop: 12/20/16 11:58 Last Admin: 12/20/16 11:53 Dose: 0.4 mg Phytonadione (Vitamin K) 10 mg PO ONCE ONE Stop: 12/21/16 10:35 Last Admin: 12/21/16 10:47 Dose: 10 mg Rosuvastatin Calcium (Crestor) 20 mg PO ONCE ONE Stop: 12/20/16 14:00 Last Admin: 12/20/16 13:52 Dose: 20 mg Warfarin Sodium (Coumadin) 2.5 mg PO [place]@1700 [facility] Stop: 01/19/17 17:01 Last Admin: 12/20/16 16:30 Dose: 2.5 mg - Disposition Disposition: [facility] Condition: Critical Discharge Date: 12/21/16 Discharge Time: 11:20
[2016-12-21 13:58] VITALS: BP 127/79
[2016-12-21] MEDS ORDERED: WARFARIN SODIUM 5 MG TABLET PO SCH (17:00)
== END 2016-12-21 11:20 | disposition short-term general hospital (02) ==
LOC: ER 10:15 → MS 12:42 → SCU 12-21 09:57
PROVIDERS: ADMIT Nurse Practitioner Critical Care Medicine; ATTEND Internal Medicine
DX: I71.01 Dissection of thoracic aorta (principal); I71.4 Abdominal aortic aneurysm, without rupture; I48.2 Chronic atrial fibrillation; R07.2 Precordial pain; Z79.01 Long term (current) use of anticoagulants; I10 Essential (primary) hypertension; R55 Syncope and collapse
CPT/HCPCS: 36415; 36430; 70450; 71010; 71275; 74175; 80048; 81001; 82550; 82553; 83605; 84145; 84484; 85014; 85018; 85025; 85610; 86850; 86900; 87040; 87086; 93005; 96365; 96367; 99284; G0378; P9016